=== PATIENT | female | born 1955 | race Hispanic/Latino ===

== ENCOUNTER 2021-11-14 13:00 | Outpatient (CLI) | payer OTHER | END 2021-11-14 13:01 | disposition home or self-care (01) | LOC: SCSMRI 13:00 | PROVIDERS: ATTEND Orthopaedic Surgery | DX: M75.101 Unspecified rotator cuff tear or rupture of right shoulder, not specified as traumatic (principal) ==

== ENCOUNTER 2023-04-11 14:34 | Outpatient (CLI) | payer MEDICARE, OTHER | END 2023-04-11 14:35 | disposition home or self-care (01) | LOC: SCSMRI 14:34 | PROVIDERS: ATTEND Orthopaedic Surgery | DX: M75.101 Unspecified rotator cuff tear or rupture of right shoulder, not specified as traumatic (principal); M19.011 Primary osteoarthritis, right shoulder; S43.001A Unspecified subluxation of right shoulder joint, initial encounter; Z98.890 Other specified postprocedural states ==